=== PATIENT | female | born 1965 | race American Indian/Alaskan Native ===

== ENCOUNTER 2020-11-12 08:03 | Outpatient (CLI) | payer OTHER | END 2020-11-12 08:04 | disposition home or self-care (01) | LOC: PF 08:03 | PROVIDERS: ATTEND Internal Medicine | DX: J45.909 Unspecified asthma, uncomplicated (principal); M06.9 Rheumatoid arthritis, unspecified; F99 Mental disorder, not otherwise specified; F41.9 Anxiety disorder, unspecified; I10 Essential (primary) hypertension; F32.9 Major depressive disorder, single episode, unspecified; M81.0 Age-related osteoporosis without current pathological fracture | CPT/HCPCS: 94010 ==